=== PATIENT | female | born 1995 | race Caucasian/White ===

== ENCOUNTER 2021-07-17 10:10 | Inpatient (IN) | payer OTHER ==
[2021-07-17 12:39] VITALS: BMI 33.0
[2021-07-17] MEDS ORDERED: ONDANSETRON *ODT* 4 MG TABLET SL PRN (14:49)
[2021-07-17] MEDS ORDERED: IBUPROFEN 400 MG TABLET (FP) PO PRN (14:49)
[2021-07-17] MEDS ORDERED: ACETAMINOPHEN 325 MG TABLET (FP) PO PRN ×2 (14:49)
[2021-07-17] MEDS ORDERED: MAGNESIUM HYDROX 2400MG/30ML ORAL SUSPENSION 30 ML CUP PO PRN (14:49)
[2021-07-17] MEDS ORDERED: BISMUTH SUBSALICYLATE 524 MG/30 ML PO PRN (14:49)
[2021-07-17] MEDS ORDERED: methaDONE HCL 10 MG TABLET (FOR DETOX USE ONLY) PO ONE (14:49)
[2021-07-17] MEDS ORDERED: METHOCARBAMOL 500 MG TABLET PO PRN (14:49)
[2021-07-17] MEDS ORDERED: MAG HYDROX/AL HYDROX/SIMETH 30 ML UNIT-DOSE CUP PO PRN (14:49)
[2021-07-17] MEDS ORDERED: cloNIDine HCL 0.1 MG TABLET PO PRN (14:49)
[2021-07-17] MEDS ORDERED: MENTHOL/PHENOL 1 EACH UD MM PRN (14:49)
[2021-07-17] MEDS ORDERED: MAGNESIUM CITRATE 300 ML BOTTLE PO PRN (14:49)
[2021-07-17] MEDS: hydrOXYzine PAMOATE 25 MG CAPSULE (FP) PO SCH ×2 (18:27→22:33)
[2021-07-17] MEDS: THIAMINE HCL 100 MG TABLET (FP) PO SCH (22:33)
[2021-07-17] MEDS: MELATONIN 5 MG TABLETS PO SCH (22:33)
[2021-07-17] MEDS: CLOTRIMAZOLE 1% CREAM TP SCH ×2 (23:01→23:37)
[2021-07-18] MEDS: hydrOXYzine PAMOATE 25 MG CAPSULE (FP) PO SCH ×5 (06:51→22:19)
[2021-07-18] MEDS ORDERED: methaDONE HCL 10 MG TABLET (FOR DETOX USE ONLY) ONE (09:26)
[2021-07-18 10:12] LABS: ALBUMIN 3.2 g/dl (3.4-5.0); BLOOD UREA NITROGEN 8.4 mg/dL (7-18); CALCIUM 8.3 mg/dL (8.5-10.1)
[2021-07-18 10:15] LABS: CREATININE 0.6 mg/dL (0.55-1.3)
[2021-07-18 10:16] LABS: BILIRUBIN,TOTAL 0.4 mg/dL (0.2-1)
[2021-07-18 10:17] LABS: HEMATOCRIT 40.9 % (32.4-45.2); HEMOGLOBIN 13.8 GM/dL (10.7-15.3); MCH 30.9 pg (25.7-33.7); MCHC 33.7 g/dl (32.0-36.0); MEAN CELL VOLUME 91.9 fl (80-96); MEAN PLT VOLUME 8.8 fl (7.5-11.1); PLATELET COUNT 233 10^3/uL (134-434); RBC 4.45 M/mm3 (3.60-5.2); RDW 13.1 % (11.6-15.6); TOT PROT 5.6 g/dl (6.4-8.2)
[2021-07-18] MEDS: CLOTRIMAZOLE 1% CREAM TP SCH ×2 (10:28→22:18)
[2021-07-18] MEDS: PRENATAL VITAMINS W/ FOLIC ACID TABLET (FP) PO SCH (10:35)
[2021-07-18] MEDS: THIAMINE HCL 100 MG TABLET (FP) PO SCH (22:19)
[2021-07-18] MEDS: MELATONIN 5 MG TABLETS PO SCH (22:19)
[2021-07-19] MEDS: hydrOXYzine PAMOATE 25 MG CAPSULE (FP) PO SCH ×5 (07:04→22:25)
[2021-07-19] MEDS ORDERED: methaDONE HCL 10 MG TABLET (FOR DETOX USE ONLY) PO ONE (10:00)
[2021-07-19] MEDS: PRENATAL VITAMINS W/ FOLIC ACID TABLET (FP) PO SCH (10:17)
[2021-07-19] MEDS: CLOTRIMAZOLE 1% CREAM TP SCH ×2 (10:17→22:25)
[2021-07-19] MEDS: THIAMINE HCL 100 MG TABLET (FP) PO SCH (22:25)
[2021-07-19] MEDS: MELATONIN 5 MG TABLETS PO SCH (22:25)
[2021-07-20] MEDS: hydrOXYzine PAMOATE 25 MG CAPSULE (FP) PO SCH ×5 (07:14→22:20)
[2021-07-20] MEDS ORDERED: methaDONE HCL 10 MG TABLET (FOR DETOX USE ONLY) ONE (10:22)
[2021-07-20] MEDS: PRENATAL VITAMINS W/ FOLIC ACID TABLET (FP) PO SCH (10:41)
[2021-07-20] MEDS: CLOTRIMAZOLE 1% CREAM TP SCH ×2 (11:53→23:21)
[2021-07-20] MEDS: THIAMINE HCL 100 MG TABLET (FP) PO SCH (22:20)
[2021-07-20] MEDS: MELATONIN 5 MG TABLETS PO SCH (22:20)
[2021-07-21] MEDS: hydrOXYzine PAMOATE 25 MG CAPSULE (FP) PO SCH ×5 (06:30→23:16)
[2021-07-21] MEDS ORDERED: methaDONE HCL 10 MG TABLET (FOR DETOX USE ONLY) PO ONE (10:00)
[2021-07-21] MEDS: CLOTRIMAZOLE 1% CREAM TP SCH ×2 (10:35→23:15)
[2021-07-21] MEDS: PRENATAL VITAMINS W/ FOLIC ACID TABLET (FP) PO SCH (10:35)
[2021-07-21] MEDS: NICOTINE 10 MG CARTRIDGE (INHALER) IH PRN ×2 (17:26→23:16)
[2021-07-21] MEDS: MELATONIN 5 MG TABLETS PO SCH (23:15)
[2021-07-21] MEDS: THIAMINE HCL 100 MG TABLET (FP) PO SCH (23:17)
[2021-07-22] MEDS: hydrOXYzine PAMOATE 25 MG CAPSULE (FP) PO SCH ×2 (06:37→11:29)
[2021-07-22] MEDS: PRENATAL VITAMINS W/ FOLIC ACID TABLET (FP) PO SCH (11:29)
[2021-07-22] MEDS: CLOTRIMAZOLE 1% CREAM TP SCH (11:29)
[2021-07-22 13:08] VITALS: BP 129/80; PULSE 102; TEMP 98
== END 2021-07-22 15:06 | disposition home or self-care (01) | DRG 773 ==
LOC: EDSEX → YASAS 10:10 → Y3N 16:48
PROVIDERS: ADMIT Allergy & Immunology; ATTEND Allergy & Immunology
PROC: HZ2ZZZZ Detoxification Services for Substance Abuse Treatment (ICD-10-PCS; principal; 2021-07-17)
DX: F11.23 Opioid dependence with withdrawal (principal); F12.20 Cannabis dependence, uncomplicated; F19.280 Other psychoactive substance dependence with psychoactive substance-induced anxiety disorder; F32.A Depression, unspecified; U07.1 COVID-19; B35.4 Tinea corporis; Z87.891 Personal history of nicotine dependence
CPT/HCPCS: 36415; 80053; 81025; 85027; 86780; C9803-CS; U0003; U0005